=== PATIENT | male | born 1990 | race Caucasian/White ===

== ENCOUNTER 2016-12-11 22:31 | Emergency (ER) | payer MEDICAID | END 2016-12-12 01:44 | disposition home or self-care (01) | LOC: D.ER 22:31 | DX: K05.10 Chronic gingivitis, plaque induced (principal); J02.9 Acute pharyngitis, unspecified; R51 Headache; F17.200 Nicotine dependence, unspecified, uncomplicated ==

== ENCOUNTER 2018-03-03 17:10 | Emergency (ER) | payer MEDICAID ==
[~2018-03-03] VITALS: Ht 188 cm; Wt 63.5 kg
[2018-03-03 17:20] VITALS: Ht 188 cm; Wt 63.5 kg
[2018-03-03 20:45] VITALS: BP 129/74
== END 2018-03-03 20:45 | disposition home or self-care (01) ==
LOC: D.ER 17:10
DX: S40.862A Insect bite (nonvenomous) of left upper arm, initial encounter (principal); W57.XXXA Bitten or stung by nonvenomous insect and other nonvenomous arthropods, initial encounter; Y93.9 Activity, unspecified; Y92.89 Other specified places as the place of occurrence of the external cause; L03.114 Cellulitis of left upper limb

== ENCOUNTER 2018-10-03 17:09 | Emergency (ER) | payer SELFPAY ==
[2018-10-03 17:18] VITALS: BMI 18.6
[2018-10-03 17:42] LABS: BASOPHILS 0.9 % (0-2); EOSINOPHILS 2.7 % (0-7); HEMATOCRIT 45.4 % (42.0-54.0); HEMOGLOBIN 16.4 g/dL (13.5-17.5); IMMATURE GRANULOCYTES 0.2 % (0-5); LYMPHOCYTES 30.2 % (15-50); MCH 31.6 pg (26.0-34.0); MCHC 36.1 g/dL (31.0-37.0); MCV 87.5 fL (80.0-100.0); MEAN PLATELET VOLUME 9.4 fL (7.4-10.4); MONOCYTES 8.2 % (2-11); NEUTROPHILS 57.8 % (40-80); PLATELET COUNT 178 10x3/uL (130-400); RBC 5.19 10x6/uL (4.20-6.10); RDW 12.5 % (11.5-14.5); WBC 5.3 10x3/uL (4.8-10.8)
[2018-10-03 18:11] LABS: ALKALINE PHOSPHATASE 128 U/L (46-116); ALT (SGPT) 10 U/L (10-68); BILIRUBIN - TOTAL 0.95 mg/dL (0.2-1.3); CALC OSMOLALITY 277 mosm/kg (275-300); CALCIUM 8.6 mg/dL (8.5-10.1); CARBON DIOXIDE 28.5 mmol/L (21.0-32.0); CHLORIDE - SERUM 105 mmol/L (98-107); CREATININE - SERUM 1.1 mg/dL (0.6-1.3); POTASSIUM - SERUM 3.7 mmol/L (3.5-5.1); PROTEIN - SERUM 7.5 g/dL (6.4-8.2); SODIUM 141 mmol/L (136-145); UREA NITROGEN 10 mg/dL (7-18); eGFR NON AFRICAN AMERICAN 86 mL/min (90-120)
[2018-10-03 18:14] LABS: INR 1.14 (0.85-1.17); PROTIME 14.1 SECONDS (11.6-15.0)
[2018-10-03 18:15] LABS: APTT 35.6 SECONDS (22.8-39.4); GLUCOSE 65 mg/dL (74-106)
[2018-10-03 21:05] VITALS: BP 115/68
== END 2018-10-03 21:06 | disposition home or self-care (01) ==
LOC: D.ER 17:09
PROVIDERS: Emergency Medicine
DX: K64.9 Unspecified hemorrhoids (principal); K62.5 Hemorrhage of anus and rectum

== ENCOUNTER 2018-12-31 17:57 | Emergency (ER) | payer MEDICAID ==
[~2018-12-31] VITALS: Ht 188 cm; Wt 63.6 kg
[2018-12-31 18:15] VITALS: Ht 188 cm; Wt 63.6 kg
[2018-12-31 18:27] LABS: BASOPHILS 0.8 % (0-2); EOSINOPHILS 4.4 % (0-7); HEMATOCRIT 43.7 % (42.0-54.0); HEMOGLOBIN 16.3 g/dL (13.5-17.5); IMMATURE GRANULOCYTES 0.2 % (0-5); LYMPHOCYTES 35.1 % (15-50); MCH 32.1 pg (26.0-34.0); MCHC 37.3 g/dL (31.0-37.0); MEAN PLATELET VOLUME 9.8 fL (7.4-10.4); MONOCYTES 7.1 % (2-11); NEUTROPHILS 52.4 % (40-80); PLATELET COUNT 167 10x3/uL (130-400); RBC 5.08 10x6/uL (4.20-6.10); RDW 12.6 % (11.5-14.5); WBC 5.9 10x3/uL (4.8-10.8)
[2018-12-31 18:38] LABS: APTT 32.3 SECONDS (22.8-39.4); INR 1.07 (0.85-1.17); PROTIME 13.4 SECONDS (11.6-15.0)
[2018-12-31 18:48] LABS: ALBUMIN 4.2 g/dL (3.4-5.0); ALKALINE PHOSPHATASE 104 U/L (46-116); ALT (SGPT) 8 U/L (10-68); BILIRUBIN - TOTAL 0.58 mg/dL (0.2-1.3); CALC OSMOLALITY 277 mosm/kg (275-300); CALCIUM 8.1 mg/dL (8.5-10.1); CARBON DIOXIDE 26.6 mmol/L (21.0-32.0); CHLORIDE - SERUM 104 mmol/L (98-107); CREATININE - SERUM 0.9 mg/dL (0.6-1.3); GLUCOSE 83 mg/dL (74-106); POTASSIUM - SERUM 3.7 mmol/L (3.5-5.1); PROTEIN - SERUM 7.6 g/dL (6.4-8.2); SODIUM 139 mmol/L (136-145); UREA NITROGEN 14 mg/dL (7-18); eGFR NON AFRICAN AMERICAN > 90 mL/min (90-120)
[2018-12-31 18:59] LABS: CREATINE KINASE 128 UL (21-232); MAGNESIUM - SERUM 2.1 mg/dL (1.8-2.4)
[2018-12-31 19:04] LABS: TROPONIN-I < 0.017 ng/mL (0.000-0.060)
[2018-12-31] MEDS ORDERED: TORADOL10 MG PO (19:49)
[2018-12-31 20:20] VITALS: BP 115/65
== END 2018-12-31 20:20 | disposition home or self-care (01) ==
LOC: D.ER 17:57
PROVIDERS: Family Medicine
DX: R07.81 Pleurodynia (principal)